=== PATIENT | male | born 1975 | race Caucasian/White ===

== ENCOUNTER 2016-12-12 18:04 | Emergency (ER) ==
[2016-12-12] MEDS ORDERED: SOLU-MEDROL 125 MG IM STA (18:05)
[2016-12-12] MEDS ORDERED: BENADRYL IM STA (18:06)
[2016-12-12] MEDS ORDERED: ZANTAC PO STA (18:06)
[2016-12-12] MEDS ORDERED: ADRENALIN 1:1000 SDV IM STA (18:06)
[2016-12-12] MEDS ORDERED: CLARITIN PO STA (18:06)
--- NOTE | 2016-12-12 18:17 | ED.PDOC ---
General ED Provider: Dr. LAZARO ABBOTT Chief Complaint: Allergic Reaction Stated Complaint: Patient states that he noticed that he has started having rash all over the body with itching. State he is traveling back home from a hunting trip. Time Seen by Physician: 18:15 Mode of Arrival: Walk-In Information Source: Patient Exam Limitations: No limitations Nursing and Triage Documentation Reviewed and Agree: Yes Skin Complaint Exam - Skin Rash/Itching Complaint/Exam Onset/Duration: 1 day Symptoms Are: Still present Initial Severity: Moderate Current Severity: Severe Location: Generalized Potential Exposures: Reports: Plants Prior Treatment: Bendryl Aggravating: Reports: None Alleviating: Reports: None Associated Signs and Symptoms: Denies: Difficulty breathing, Fever, Chills Skin Findings: Present: Urticaria Differential Diagnoses: Contact Dermatitis, Urticaria Review of Systems - Review Of Systems Constitutional: Reports: No symptoms Eyes: Reports: No symptoms Ears, Nose, Mouth, Throat: Reports: No symptoms (except horse voice. ) Respiratory: Reports: No symptoms Cardiac: Reports: No symptoms GI: Reports: No symptoms : Reports: No symptoms Musculoskeletal: Reports: No symptoms Skin: Reports: Rash (itchy ) Neurological: Reports: No symptoms Endocrine: Reports: No symptoms Hematologic/Lymphatic: Reports: No symptoms All Other Systems: Reviewed and Negative Past Medical History - Past Medical History Previously Healthy: Yes Endocrine: Reports: None Cardiovascular: Reports: None Respiratory: Reports: None Hematological: Reports: None Gastrointestinal: Reports: None Genitourinary: Reports: None Neuro/Psych: Reports: Migraine Musculoskeletal: Reports: None Cancer: Reports: None - Surgical History General Surgical History: Reports: Other (appendectomy; steel plate for collarbone s/p fx) - Family History Family History: Reports: None - Social History Smoking Status: Never smoker - Immunizations Tetanus Shot up to Date: No Physical Exam - Physical Exam Appearance: Ill-appearing, Obese Eyes: OPAL, EOMI, Conjunctiva clear ENT: Ears normal, Nose normal, Oropharynx normal Neck: Supple Respiratory: Airway patent, Breath sounds clear, Breath sounds equal, Respirations nonlabored Cardiovascular: RRR, Pulses normal, No rub, No murmur GI/: Soft, Nontender, No masses, Bowel sounds normal, No Organomegaly Musculoskeletal: Normal strength, ROM intact, No edema, No calf tenderness Skin: Warm, Dry, Normal color Neurological: Sensation intact, Motor intact, Reflexes intact, Cranial nerves intact, Alert, Oriented Psychiatric: Affect appropriate, Mood appropriate Critical Care Note - Critical Care Note Total Time (mins): 0 Course - Course Orders, Labs, Meds: Orders Category Date Time Status Diphenhydramine Inj [Benadryl] MEDS 12/12/16 18:06 Discontinued 50 mg IM ONCE STA Epinephrine [Adrenalin 1:1000 Sdv] MEDS 12/12/16 18:06 Discontinued 0.4 mg IM ONCE STA Loratadine [Claritin] MEDS 12/12/16 18:06 Discontinued 10 mg PO ONCE STA Methylprednisolone Sod Succ/Pf [Solu-Medrol 125 mg] MEDS 12/12/16 18:05 Discontinued 125 mg IM ONCE STA Ranitidine HCl [Zantac] MEDS 12/12/16 18:06 Discontinued 300 mg PO ONCE STA Medications Discontinued Medications Generic Name Dose Route Start Last Admin Trade Name Freq PRN Reason Stop Dose Admin Diphenhydramine HCl 50 mg 12/12/16 18:06 Benadryl IM 12/12/16 18:07 ONCE STA Epinephrine HCl 0.4 mg 12/12/16 18:06 12/12/16 18:38 Adrenalin 1:1000 Sdv IM 12/12/16 18:07 0.4 mg ONCE STA Administration Loratadine 10 mg 12/12/16 18:06 12/12/16 18:19 Claritin PO 12/12/16 18:07 10 mg ONCE STA Administration Methylprednisolone Sodium Succinate 125 mg 12/12/16 18:05 12/12/16 18:19 Solu-Medrol 125 Mg IM 12/12/16 18:06 125 mg ONCE STA Administration Ranitidine HCl 300 mg 12/12/16 18:06 12/12/16 18:20 Zantac PO 12/12/16 18:07 300 mg ONCE STA Administration Vital Signs: Temp Pulse Resp BP Pulse Ox 12/12/16 18:07 97.4 F L 86 18 160/65 H 95 Departure - Departure Time of Disposition: 18:51 Disposition: HOME SELF-CARE Discharge Problem: Urticaria Instructions: Urticaria (ED) Condition: Fair Pt referred to PMD for follow-up: Yes Additional Instructions: Take Medications as prescribed Follow up with PCP in 3 days Return or show up in the ER if not better. Prescriptions: Epinephrine [Epipen Twinpak] 0.3 mg IM PRN PRN #1 pen.injctr PRN Reason: Allergy Symptoms Methylprednisolone [Medrol Dosepak] 4 mg PO DIRECTED #1 pkg Allergies/Adverse Reactions: Allergies No Known Allergies Allergy (Unverified 12/12/16 18:05) Home Medications: Ambulatory Orders Epinephrine [Epipen Twinpak] 0.3 mg IM PRN PRN #1 pen.injctr 12/12/16 Methylprednisolone [Medrol Dosepak] 4 mg PO DIRECTED #1 pkg 12/12/16 Propranolol HCl [Inderal LA] 160 mg PO DAILY 12/12/16 Disposition Discussed With: Patient, Family
[2016-12-12 18:27] VITALS: TEMP 97.4; BMI 37.6
[2016-12-12 19:02] VITALS: BP 131/79
== END 2016-12-12 19:19 | disposition home or self-care (01) ==
LOC: ED 18:04
DX: L50.9 Urticaria, unspecified (principal)
CPT/HCPCS: 96372; 99283